=== PATIENT | female | born 1955 | race Caucasian/White ===

== ENCOUNTER → 2023-07-26 17:47 | Outpatient (REF) | payer OTHER, SELFPAY | LOC: MRI 17:47 | PROVIDERS: ATTENDING PHYSICIAN Nurse Practitioner Adult Health; FAMILY PHYSICIAN Nurse Practitioner | DX: G35 Multiple sclerosis (principal); G43.719 Chronic migraine without aura, intractable, without status migrainosus; R90.89 Other abnormal findings on diagnostic imaging of central nervous system; R93.7 Abnormal findings on diagnostic imaging of other parts of musculoskeletal system | CPT/HCPCS: 72157; 72158; A9575 ==

== ENCOUNTER → 2023-07-27 17:43 | Outpatient (REF) | payer OTHER, SELFPAY | LOC: MRI 17:43 | PROVIDERS: ATTENDING PHYSICIAN Nurse Practitioner Adult Health; FAMILY PHYSICIAN Nurse Practitioner | DX: G35 Multiple sclerosis (principal); G43.719 Chronic migraine without aura, intractable, without status migrainosus; R90.89 Other abnormal findings on diagnostic imaging of central nervous system; R93.7 Abnormal findings on diagnostic imaging of other parts of musculoskeletal system | CPT/HCPCS: 70553; 72156; A9575 ==

== ENCOUNTER → 2024-07-27 11:50 | Outpatient (REF) | payer OTHER, SELFPAY | LOC: MRI 3T 11:50 | PROVIDERS: ATTENDING PHYSICIAN Psychiatry & Neurology Neurology | DX: G35 Multiple sclerosis (principal) | CPT/HCPCS: 70553; 72156; A9575 ==

== ENCOUNTER → 2024-08-05 11:58 | Outpatient (REF) | payer OTHER, SELFPAY | LOC: MRI 11:58 | PROVIDERS: ATTENDING PHYSICIAN Psychiatry & Neurology Neurology | DX: R90.89 Other abnormal findings on diagnostic imaging of central nervous system (principal); G35 Multiple sclerosis; G43.719 Chronic migraine without aura, intractable, without status migrainosus; R93.7 Abnormal findings on diagnostic imaging of other parts of musculoskeletal system | CPT/HCPCS: 72157; A9575 ==